=== PATIENT | female | born 1995 | race Caucasian/White ===

== ENCOUNTER 2023-01-01 13:17 | Emergency (ER) | payer OTHER ==
[~2023-01-01] VITALS: Ht 149.9 cm; Wt 59.0 kg
[2023-01-01 13:18] VITALS: BP 137/67
--- NOTE | 2023-01-01 13:19 | NUR ---
BIBA ALS TO BED 9
--- NOTE | 2023-01-01 13:25 | NUR ---
DR. FULLER EVALUATING PATIENT AT BEDSIDE
--- NOTE | 2023-01-01 13:30 | NUR ---
27/F BIBA FROM. PER EMS PATIENT WAS FOUND LYING ON THE COUCH UNRESPONSIVE BY BOYFRIEND. EMS STATES ON SCENE PATIENT O2 SAT 68% AND 4 RPM. PATIENT GIVEN 0.5MG NARCAN IN ON SCENE, STATED PATIENT WAS AWAKE AND RESPONSIVE "WITHIN 15 SECONDS." UPON ARRIVAL O2 98%. PATIENT DENIES DRUG OR ALCOHOL USE STATES "I HAVEN'T DONE DRUGS FOR 4 MONTHS SINCE I GOT OUT OF REHAB." PATIENT PRESENTS A&OX4, DENIES CHEST PAIN, ABDOMINAL PAIN, SOB, FEVER, CHILLS, OTHER MEDICAL COMPLAINTS. [employer] PRINCIPAL IN PLACE. TACHYCARDIA @ 117. RR 11. SPO2 98% AT THIS TIME. BED LOCKED IN LOWEST POSITION, SIDE RAILS X 2. PMH: ANXIETY MEDS: XANAX NKDA
--- NOTE | 2023-01-01 14:05 | NUR ---
PT AMBULATED TO RESTROOM STEADY/EVEN GAIT. URINE SPECIMEN CUP GIVEN.
--- NOTE | 2023-01-01 14:10 | NUR ---
Patient unable to void
--- NOTE | 2023-01-01 14:19 | NUR ---
Patient states she was seen at [facility] and was advised she is 11 weeks . Patient states she took a home test last week due to nausea/vomiting episodes showing + result. Patient states last drink ~1 week ago. Denies drug use today. Dr. Blunt notified. LMP: 10/22.
--- NOTE | 2023-01-01 14:19 | NUR ---
Patient admitted "taking Xanax today with a blue pill." States dx UTI at [facility] yesterday and has medication from visit at pharmacy; has not picked up medications.
--- NOTE | 2023-01-01 14:21 | NUR ---
Dr. Blunt evaluating patient at bedside
[2023-01-01] MEDS ORDERED: NACL 0.9% 1,000 ML IV STA (14:25)
--- NOTE | 2023-01-01 14:30 | NUR ---
Verbal consent received from patient to give status update to Pal (boyfriend). Status update given to Pal in lobby.
--- NOTE | 2023-01-01 14:31 | NUR ---
Pt requesting to speak with Pal. Phone number received ; patient handed mobile phone speaking with boyfriend at this time. Call light left at bedside.
--- NOTE | 2023-01-01 14:52 | NUR ---
Pt requesting to AMA at this time. Dr. Blunt notified.
[2023-01-01 14:56] VITALS: BP 119/81
--- NOTE | 2023-01-01 14:56 | NUR ---
Patient does not wish to proceed with medical care recommended by Dora Blunt MD. Patient given information related to possible complications, up to and including , which could occur as a result of leaving hospital at this time. Patient verbalizes understanding of risks involved leaving against medical advice. Patient has signed AMA form.
== END 2023-01-01 14:56 | disposition left against medical advice (07) ==
LOC: MED 13:17
DX: R40.20 Unspecified coma (principal); T40.2X1A Poisoning by other opioids, accidental (unintentional), initial encounter; Y92.89 Other specified places as the place of occurrence of the external cause
CPT/HCPCS: 96360; 99283; J7030